=== PATIENT | female | born 1970 | race Caucasian/White ===

== ENCOUNTER 2016-06-21 08:50 | Emergency (ER) | payer OTHER ==
[2016-06-21] MEDS ORDERED: predniSONE TAB* 20 MG PO ONE (09:45)
[2016-06-21] MEDS ORDERED: Ketorolac INJ* 30 MG/ML 1 ML VIAL IM ONE (09:45)
--- NOTE | 2016-06-21 10:16 | RAD ---
HISTORY: Low back pain COMPARISONS: October 24, 2010 VIEWS: 3 , Frontal, lateral, and coned-down lateral sacral views of the lumbar spine FINDINGS: ALIGNMENT: The alignment is normal. VERTEBRAL BODIES: There is mild multilevel anterolateral marginal osteophyte formation. The vertebral bodies are preserved in height. JOINTS: There is facet hypertrophic change at L4-L5 and L5-S1 INTERVERTEBRAL DISCS: There is mild diffuse loss of intervertebral disc height. SOFT TISSUE: Unremarkable. OTHER: The pelvis is unremarkable. The lung bases are clear. IMPRESSION: MILD DEGENERATIVE DISC DISEASE AND OSTEOARTHRITIS, MOST PRONOUNCED AT L4-L5 AND L5-S1
[2016-06-21 10:33] VITALS: BP 124/70
--- NOTE | 2016-06-21 16:25 | ED ---
Back Pain - History of Current Complaint Chief Complaint: EDBackInjuryPain Stated Complaint: LOWER BACK PAIN Time Seen by Provider: 06/21/16 08:55 Pain Intensity: 3 Pain Scale Used: 0-10 Numeric - Allergies/Home Medications Allergies/Adverse Reactions: Allergies Allergy/AdvReac Type Severity Reaction Status Date / Time Tramadol [From Ultram] Allergy unknown Verified 03/27/15 16:41 reaction Celecoxib [From Celebrex] AdvReac diverticuli Verified 03/27/15 16:41 tis PMH/Surg Hx/FS Hx/Imm Hx Endocrine/Hematology History: Reports: Hx Diabetes - Surgical History Surgery Procedure, Year, and Place: tubal ligation, exploratory abd surgery, uterine ablasion, toe surgery. - Immunization History Date of Tetanus Vaccine: Unk Date of Influenza Vaccine: Fall 2014 Infectious Disease History: No Infectious Disease History: Denies: History Other Infectious Disease, Traveled Outside the [place] in Last 30 Days - Social History Alcohol Use: Rare Substance Use Type: Reports: None Smoking Status (MU): Heavy Every Day Tobacco Smoker Amount Used/How Often: 1 ppd Physical Exam Vital Signs On Initial Exam: Initial Vitals Temp Pulse Resp BP Pulse Ox 97.1 F 126 16 157/98 100 06/21/16 08:52 06/21/16 08:52 06/21/16 08:52 06/21/16 08:52 06/21/16 08:52 Diagnostics - Vital Signs Vital Signs Temp Pulse Resp BP Pulse Ox 06/21/16 10:37 97.0 F 98 20 124/70 06/21/16 10:30 98 124/70 95 06/21/16 10:16 101 123/91 95 06/21/16 10:13 94 96 06/21/16 09:08 123 97 06/21/16 09:06 127/101 06/21/16 09:05 96.7 F 115 18 127/101 99 06/21/16 08:52 97.1 F 126 16 157/98 100 - Laboratory Lab Statement: Any lab studies that have been ordered have been reviewed, and results considered in the medical decision making process. Back Pain Course/Dx - Diagnoses Provider Diagnoses: LOW BACK STRAIN Discharge - Discharge Plan Condition: Stable Disposition: HOME Prescriptions: Ketorolac TAB (NF) [Toradol TAB (NF)] 10 mg PO Q8H PRN #4 tab PRN Reason: back pain predniSONE TAB* [Deltasone TAB*] 10 mg PO DAILY #10 tab Patient Education Materials: Low Back Strain (ED), Core Strengthening Exercises (GEN) Referrals: Monik Hutchison MD [Primary Care Provider] - Additional Instructions: - Do not take celebrex with toradol - Prednisone to help with inflammation/ nerve pain - Limit activity next 3-4 days, increase rest, heating pad for comfort - Flexeril as needed for muscle spasms - FOllow up with primary physician within 2-3 days if no improvement - Return to ER with loss of bowel/ bladder function, increased numbness/ tingling
== END 2016-06-21 10:37 | disposition home or self-care (01) ==
LOC: ED 08:50
DX: S39.012A Strain of muscle, fascia and tendon of lower back, initial encounter (principal); F17.210 Nicotine dependence, cigarettes, uncomplicated; E11.9 Type 2 diabetes mellitus without complications; X58.XXXA Exposure to other specified factors, initial encounter; Y92.9 Unspecified place or not applicable
CPT/HCPCS: 72100; 99282; J1885; J7512

== ENCOUNTER 2017-04-05 11:12 | Emergency (ER) | payer OTHER ==
[2017-04-05 12:57] LABS: ABS Basophils 0.1 10^3/ul (0-0.2); ABS Eosinophils 0 10^3/ul (0-0.6); ABS Lymphocytes 2.4 10^3/ul (1.0-4.8); ABS Monocytes 0.6 10^3/ul (0-0.8); ABS Neutrophils 9.7 10^3/ul (1.5-7.7); ABS Nucleated RBC 0 10^3/ul; Eosinophil % 0.2 % (0-6); Hematocrit 40 % (35-47); Hemoglobin 13.6 g/dl (12.0-16.0); Lymphocyte % 18.8 % (25-47); Mean Corpuscular HGB Conc 34 g/dl (31-36); Mean Corpuscular Hemoglobin 30 pg (27-31); Mean Corpuscular Volume 89 fL (80-97); Mean Platelet Volume 8 um3 (7.4-10.4); Nucleated Red Blood Cells % 0.2; Platelet Count 302 10^3/ul (150-450); Red Blood Count 4.51 10^6/ul (4.0-5.4); Red Cell Distribution Width 13 % (10.5-15); White Blood Count 12.8 10^3/ul (3.5-10.8)
--- NOTE | 2017-04-05 13:08 | RAD ---
HISTORY: Chest pain COMPARISONS: April 02, 2006 VIEWS: 1: frontal portable view of the chest at 12:55 PM FINDINGS: LINES AND TUBES: None. CARDIOMEDIASTINAL SILHOUETTE: The cardiomediastinal silhouette is normal for portable technique. PLEURA: The costophrenic angles are sharp. No pleural abnormalities are noted. LUNG PARENCHYMA: The lungs are clear. ABDOMEN: The upper abdomen is clear. There is no subphrenic gas. BONES AND SOFT TISSUES: No bone or soft tissue abnormalities are noted. IMPRESSION: NO ACTIVE CARDIOPULMONARY DISEASE.
[2017-04-05 13:16] LABS: EGFR Non-African American 101.3 (>60)
[2017-04-05 13:50] LABS: INR 0.85 (0.77-1.02)
[2017-04-05] MEDS ORDERED: Iodixanol* (CONTRAST) 320 MG/ML 100 ML SDV IV ONE (14:03)
--- NOTE | 2017-04-05 14:28 | RAD ---
HISTORY: Shortness of breath COMPARISONS: None relevant TECHNIQUE: Multiple contiguous axial CT scans of the chest were obtained after the administration of nonionic intravenous contrast, timed to the pulmonary arterial phase of contrast enhancement.. Coronal and sagittal multiplanar reformations are also submitted for review. FINDINGS: NECK AND THYROID: The lower neck and thyroid are unremarkable. CHEST WALL: There is no lower cervical, axillary, or supraclavicular lymphadenopathy by size criteria. HEART AND PERICARDIUM: The heart is unremarkable. AORTA AND PULMONARY VASCULATURE: There is no pulmonary arterial filling defect to suggest pulmonary embolism. There is no linear filling defect within the aorta to suggest aortic dissection. MEDIASTINUM: There is no mediastinal lymphadenopathy by size criteria. EWA: There is no hilar lymphadenopathy by size criteria. AIRWAY AND ESOPHAGUS: The airway is unremarkable, without endobronchial filling defect. The esophagus is grossly normal. LUNG PARENCHYMA: There is patchy perihilar groundglass opacification PLEURA: No pleural abnormalities are noted. UPPER ABDOMEN: The upper abdomen is unremarkable. BONES AND SOFT TISSUES: Degenerative changes are noted along the spine. OTHER: None. IMPRESSION: 1. NO PULMONARY ARTERIAL FILLING DEFECT TO SUGGEST PULMONARY EMBOLISM. 2. PATCHY PERIHILAR AIRSPACE DISEASE
[2017-04-05] MEDS ORDERED: Levofloxacin TAB* 500 MG PO ONE (14:50)
[2017-04-05 15:05] VITALS: BP 171/83
--- NOTE | 2017-04-05 15:32 | ED ---
Jose Mathur Jennifer, scribed for Kingsley Velez on 04/05/17 at 1216 . HPI Chest Pain - HPI Summary HPI Summary: The patient is a 46 year old female who complains of chest pain that is diffuse throughout her rib cage that began yesterday morning. She describes it as a muscular pain that is aggravated by coughing, sneezing, laughing, deep breaths , and movements. She had surgery for her sinuses two days ago and was discharged on the same day. The patient additionally complains of shortness of breath. She denies leg pain, nausea, vomiting, and dizziness. She denies heart problems, lung problems, asthma, and drug use, but she does smoke. - History of Current Complaint Chief Complaint: EDChestWallPain Time Seen by Provider: 04/05/17 11:59 Hx Obtained From: Patient Onset/Duration: Started Days Ago - yesterday morning Timing: Constant Initial Severity: Moderate Current Severity: Moderate Pain Intensity: 9 Pain Scale Used: 0-10 Numeric Chest Pain Location: Diffuse Aggravating Factor(s): Movement, Deep Breaths, Other: - Coughing, sneezing, laughing, pressing on it Alleviating Factor(s): Nothing Associated Signs and Symptoms: Positive: Chest Pain, Other: - "muscle" pain - Allergy/Home Medications Allergies/Adverse Reactions: Allergies Allergy/AdvReac Type Severity Reaction Status Date / Time Tramadol [From Ultram] Allergy unknown Verified 03/27/15 16:41 reaction Celecoxib [From Celebrex] AdvReac diverticuli Verified 03/27/15 16:41 tis PMH/Surg Hx/FS Hx/Imm Hx Endocrine/Hematology History: Reports: Hx Diabetes Cardiovascular History: Reports: Other Cardiovascular Problems/Disorders - Hx Factor V EENT History: Denies: Hx Deafness - Surgical History Surgery Procedure, Year, and Place: tubal ligation, exploratory abd surgery, uterine ablasion, toe surgery. - Immunization History Date of Tetanus Vaccine: Unk Date of Influenza Vaccine: Fall 2014 Infectious Disease History: No Infectious Disease History: Denies: History Other Infectious Disease, Traveled Outside the [place] in Last 30 Days - Family History Known Family History: Positive: Diabetes, Other - Clotting disorder - Social History Alcohol Use: Rare Substance Use Type: Reports: None Smoking Status (MU): Heavy Every Day Tobacco Smoker Amount Used/How Often: 1 ppd Review of Systems Positive: Chest Pain Positive: Shortness Of Breath Negative: Vomiting, Nausea Negative: Other - leg pain Neurological: Negative - Dizziness All Other Systems Reviewed And Are Negative: Yes Physical Exam - Summary Physical Exam Summary: Appearance: Well appearing, no pain distress Skin: warm, dry, reflects adequate perfusion Head/face: normal Eyes: EOMI, SAMPSON ENT: normal Neck: supple, non-tender Respiratory: CTA, breath sounds present Cardiovascular: RRR, pulses symmetrical Abdomen: non-tender, soft Bowel: present Musculoskeletal: Tenderness over the chest. strength/ROM intact Neuro: normal, sensory motor intact, A&Ox3 Triage Information Reviewed: Yes Vital Signs On Initial Exam: Initial Vitals Temp Pulse Resp BP Pulse Ox 98.5 F 94 22 166/112 98 04/05/17 11:17 04/05/17 11:17 04/05/17 11:17 04/05/17 11:17 04/05/17 11:17 Vital Signs Reviewed: Yes Diagnostics - Vital Signs Vital Signs Temp Pulse Resp BP Pulse Ox 04/05/17 11:17 98.5 F 94 22 166/112 98 - Laboratory Lab Results: Lab Results 04/05/17 04/05/17 04/05/17 Range/Units 12:45 12:45 12:45 WBC 12.8 H (3.5-10.8) 10^3/ul RBC 4.51 (4.0-5.4) 10^6/ul Hgb 13.6 (12.0-16.0) g/dl Hct 40 (35-47) % MCV 89 (80-97) fL MCH 30 (27-31) pg MCHC 34 (31-36) g/dl RDW 13 (10.5-15) % Plt Count 302 (150-450) 10^3/ul MPV 8 (7.4-10.4) um3 Neut % (Auto) 76.0 (38-83) % Lymph % (Auto) 18.8 L (25-47) % Imperial % (Auto) 4.4 (1-9) % Eos % (Auto) 0.2 (0-6) % Baso % (Auto) 0.6 (0-2) % Absolute Neuts (auto) 9.7 H (1.5-7.7) 10^3/ul Absolute Lymphs (auto) 2.4 (1.0-4.8) 10^3/ul Absolute Monos (auto) 0.6 (0-0.8) 10^3/ul Absolute Eos (auto) 0 (0-0.6) 10^3/ul Absolute Basos (auto) 0.1 (0-0.2) 10^3/ul Absolute Nucleated RBC 0 10^3/ul Nucleated RBC % 0.2 INR (Anticoag Therapy) 0.85 (0.77-1.02) APTT 32.2 (26.0-36.3) seconds D-Dimer, Quantitative 219 (Less Than 230) ng/mL Sodium (133-145) mmol/L Potassium (3.5-5.0) mmol/L Chloride (101-111) mmol/L Carbon Dioxide (22-32) mmol/L Anion Gap (2-11) mmol/L BUN (6-24) mg/dL Creatinine (0.51-0.95) mg/dL Est GFR ( Amer) (>60) Est GFR (Non-Af Amer) (>60) BUN/Creatinine Ratio (8-20) Glucose (70-100) mg/dL Calcium (8.6-10.3) mg/dL Total Bilirubin (0.2-1.0) mg/dL AST (13-39) U/L ALT (7-52) U/L Alkaline Phosphatase (34-104) U/L Troponin I (<0.04) ng/mL B-Natriuretic Peptide 232 H ( - 100) pg/mL Total Protein (6.4-8.9) g/dL Albumin (3.2-5.2) g/dL Globulin (2-4) g/dL Albumin/Globulin Ratio (1-3) 04/05/17 Range/Units 12:45 WBC (3.5-10.8) 10^3/ul RBC (4.0-5.4) 10^6/ul Hgb (12.0-16.0) g/dl Hct (35-47) % MCV (80-97) fL MCH (27-31) pg MCHC (31-36) g/dl RDW (10.5-15) % Plt Count (150-450) 10^3/ul MPV (7.4-10.4) um3 Neut % (Auto) (38-83) % Lymph % (Auto) (25-47) % Imperial % (Auto) (1-9) % Eos % (Auto) (0-6) % Baso % (Auto) (0-2) % Absolute Neuts (auto) (1.5-7.7) 10^3/ul Absolute Lymphs (auto) (1.0-4.8) 10^3/ul Absolute Monos (auto) (0-0.8) 10^3/ul Absolute Eos (auto) (0-0.6) 10^3/ul Absolute Basos (auto) (0-0.2) 10^3/ul Absolute Nucleated RBC 10^3/ul Nucleated RBC % INR (Anticoag Therapy) (0.77-1.02) APTT (26.0-36.3) seconds D-Dimer, Quantitative (Less Than 230) ng/mL Sodium 138 (133-145) mmol/L Potassium 3.9 (3.5-5.0) mmol/L Chloride 108 (101-111) mmol/L Carbon Dioxide 23 (22-32) mmol/L Anion Gap 7 (2-11) mmol/L BUN 9 (6-24) mg/dL Creatinine 0.63 (0.51-0.95) mg/dL Est GFR ( Amer) 130.3 (>60) Est GFR (Non-Af Amer) 101.3 (>60) BUN/Creatinine Ratio 14.3 (8-20) Glucose 111 H (70-100) mg/dL Calcium 9.2 (8.6-10.3) mg/dL Total Bilirubin 0.40 (0.2-1.0) mg/dL AST 13 (13-39) U/L ALT 13 (7-52) U/L Alkaline Phosphatase 65 (34-104) U/L Troponin I 0.02 (<0.04) ng/mL B-Natriuretic Peptide ( - 100) pg/mL Total Protein 6.7 (6.4-8.9) g/dL Albumin 3.8 (3.2-5.2) g/dL Globulin 2.9 (2-4) g/dL Albumin/Globulin Ratio 1.3 (1-3) Result Diagrams: 04/05/17 12:45 04/05/17 12:45 Lab Statement: Any lab studies that have been ordered have been reviewed, and results considered in the medical decision making process. - Radiology CXR Xray Interpretation: No Acute Changes - NO ACTIVE CARDIOPULMONARY DISEASE. Dr. Velez has reviewed this report. Radiology Interpretation Completed By: Radiologist - CT CTA Chest/Thorax CT Interpretation: No Acute Changes - 1. NO PULMONARY ARTERIAL FILLING DEFECT TO SUGGEST PULMONARY EMBOLISM. 2. PATCHY PERIHILAR AIRSPACE DISEASE Dr. Velez has reviewed this report. CT Interpretation Completed By: Radiologist - EKG 12:40 Cardiac Rate: NL EKG Rhythm: Sinus Rhythm - 78 BPM EKG Interpretation: No acute changes Chest Pain Course/Dx - Course Assessment/Plan: The patient is a 46 year old female who presents with chest pain. In the ED, the patient was given Levaquin. Bloodwork, EKG, CXR, Chest/ Thorax CTA were obtained. Diagnosed with aspiration pneumonia and discharged home with primary care follow-up. - Chest Pain Differential Diagnosis/HQI/PQRI: Acute KS, ACS, Chest Wall, Lower Respiratory Infection - Diagnoses Provider Diagnoses: Aspiration pneumonia, Chest pain Discharge - Discharge Plan Condition: Stable Disposition: HOME Prescriptions: Levofloxacin TAB* [Levaquin TAB*] 500 mg PO DAILY #9 tab Patient Education Materials: Pneumonia (ED) Referrals: Monik Hutchison MD [Primary Care Provider] - 3 Days Additional Instructions: Follow up in three days with your primary care physician. Return to the Emergency Department for any new or worsening symptoms. The documentation as recorded by the Jose porter Jennifer accurately reflects the service I personally performed and the decisions made by Agustin vasquez Emmanuel.
== END 2017-04-05 15:10 | disposition home or self-care (01) ==
LOC: ED 11:12
DX: J69.0 Pneumonitis due to inhalation of food and vomit (principal); R07.9 Chest pain, unspecified; F17.200 Nicotine dependence, unspecified, uncomplicated; Z88.5 Allergy status to narcotic agent; Z88.8 Allergy status to other drugs, medicaments and biological substances
CPT/HCPCS: 36415; 71045; 71275; 80053; 83880; 84484; 85025; 85379; 85610; 85730; 93005; 99283; Q9967

== ENCOUNTER 2017-09-30 12:20 | Emergency (ER) | payer OTHER ==
--- NOTE | 2017-09-30 15:31 | RAD ---
INDICATION: Atraumatic neck pain COMPARISON: None TECHNIQUE: AP, lateral, and odontoid views were acquired FINDINGS: Bones: There are no acute bony findings. There are no significant osteoarthritic findings. Craniocervical junction: The odontoid and atlantodental interval are normal. Alignment: Normal Disc spaces: The disc spaces are well-maintained Soft tissues: The prevertebral soft tissues are normal. IMPRESSION: NEGATIVE THREE-VIEW EXAMINATION.
--- NOTE | 2017-09-30 15:32 | RAD ---
HISTORY: shoulder pain, limited ROM COMPARISONS: None VIEWS: 4, Frontal internal rotation, external rotation, outlet, and axillary views of the left shoulder FINDINGS: BONE DENSITY: Normal. BONES: There is no displaced fracture. JOINTS: There is mild osteoarthritis of the AC joint. ALIGNMENT: There is no dislocation. SOFT TISSUES: There is minimal soft tissue calcification along the greater tuberosity. OTHER FINDINGS: None. IMPRESSION: 1. MINIMAL SOFT TISSUE CALCIFICATION SUGGESTIVE OF A CALCIFIC TENDINOPATHY. NO ACUTE OSSEOUS INJURY. IF SYMPTOMS PERSIST, RECOMMEND REPEAT IMAGING. 2. NO ACUTE OSSEOUS INJURY. IF SYMPTOMS PERSIST, RECOMMEND REPEAT IMAGING
[2017-09-30] MEDS ORDERED: predniSONE TAB* 20 MG PO ONE (16:11)
--- NOTE | 2017-09-30 16:16 | ED ---
Upper Extremity Pain - HPI Summary HPI Summary: Patient presents with left-sided shoulder pain which she's had for 4 days. She reports she was packing for camping a day before her pain started on Saturday morning. She was able to go camping and just "pushed through it" as she had promised her grandchildren she would take them - had pain then but it was tolerable. She reports she went to see Dr. Ortega yesterday who adjusted her thoracic spine. Pain is worse today in the left shoulder. Radiates down into the muscles of her arm. Feels like her hand is swollen but it's not. Denies numbness or weakness. Pain is worse when she lets it hang and when she flexes - can abduct w/o pain. She takes Nucynta for chronic pain as well as meloxicam without relief for shoulder pain. No acute injury she recalls. H/o psoriatic arthritis. H/o humira but was stopped d/t recurrent sinus infections. No DMARDS or steroids at this time but has had steroids in the past. - History of Current Complaint Chief Complaint: EDExtremityUpper Stated Complaint: LT ARM INJURY Time Seen by Provider: 09/30/17 14:04 Hx Obtained From: Patient - Allergies/Home Medications Allergies/Adverse Reactions: Allergies Allergy/AdvReac Type Severity Reaction Status Date / Time MS Tramadol [From Ultram] Allergy unknown Verified 09/30/17 12:44 reaction MS Celecoxib [From Celebrex] AdvReac diverticuli Verified 09/30/17 12:44 tis PMH/Surg Hx/FS Hx/Imm Hx Previously Healthy: Yes Endocrine/Hematology History: Reports: Hx Diabetes, Autoimmune Disease - psoriatic arthritis Denies: Hx Anticoagulant Therapy, Hx Blood Disorders Cardiovascular History: Reports: Other Cardiovascular Problems/Disorders - Hx Factor V Musculoskeletal History: Reports: Hx Arthritis - psoriatic Sensory History: Denies: Hx Deafness - Surgical History Surgery Procedure, Year, and Place: tubal ligation, exploratory abd surgery, uterine ablasion, toe surgery. - Immunization History Date of Tetanus Vaccine: Unk Date of Influenza Vaccine: Fall 2014 Immunizations Up to Date: Yes Infectious Disease History: No Infectious Disease History: Denies: History Other Infectious Disease, Traveled Outside the [place] in Last 30 Days - Family History Known Family History: Positive: Diabetes, Other - Clotting disorder - Social History Lives: With Family Alcohol Use: Rare Hx Substance Use: No Substance Use Type: Reports: None Hx Tobacco Use: Yes Smoking Status (MU): Heavy Every Day Tobacco Smoker Amount Used/How Often: 1 ppd Review of Systems Constitutional: Negative Negative: Fever, Chills, Fatigue Negative: Chest Pain Negative: Shortness Of Breath Positive: no symptoms reported Positive: Arthralgia, Myalgia, Decreased ROM Skin: Negative Neurological: Negative Psychological: Normal All Other Systems Reviewed And Are Negative: Yes Physical Exam Triage Information Reviewed: Yes Vital Signs On Initial Exam: Initial Vitals Temp Pulse Resp BP Pulse Ox 98.6 F 90 20 128/74 99 09/30/17 12:40 09/30/17 12:40 09/30/17 12:40 09/30/17 12:40 09/30/17 12:40 Vital Signs Reviewed: Yes Appearance: Positive: Well-Appearing, Pain Distress - mild with arm in supported position - worse w/ movement, Obese Skin: Positive: Warm, Skin Color Reflects Adequate Perfusion, Dry - no erythema , no ecchymosis Head/Face: Positive: Normal Head/Face Inspection Eyes: Positive: EOMI ENT: Positive: Hearing grossly normal Neck: Positive: Nontender, Tenderness @ - paracervical mm TTP Respiratory/Lung Sounds: Positive: Breath Sounds Present Cardiovascular: Positive: Pulses are Symmetrical in both Upper and Lower Extremities - no UE edema Musculoskeletal: Positive: Strength/ROM Intact - Lt shoulder abduction, Limited @ - Lt shoulder flexion/internal/external rotation limited d/t pain, Pain @ - muscles surrounding shoulder TTP (trap, deltoid, teres, bicep) Neurological: Positive: Normal, Sensory/Motor Intact, Alert, Oriented to Person Place, Time, CN Intact II-III Psychiatric: Positive: Normal Diagnostics - Vital Signs Vital Signs Temp Pulse Resp BP Pulse Ox 09/30/17 12:40 98.6 F 90 20 128/74 99 - Laboratory Lab Statement: Any lab studies that have been ordered have been reviewed, and results considered in the medical decision making process. Course/Dx - Course Course Of Treatment: shoulder XR: calcific tendonitis - no fx, no dislocation. Cervical XR: no acute findings. Since pt already takes nucynta and meloxicam, will trial 5 day course of prednisone - pt has had this in the past for arthritis flair ups. Will f/u w/ Dr. Christianson (her social studies department chair) and Dr. Ortega (her painting machine operator). - Diagnoses Provider Diagnoses: Calcific tendonitis of left shoulder Discharge - Sign-Out/Discharge Documenting (check all that apply): Patient Departure - Discharge Plan Condition: Stable Disposition: HOME Prescriptions: predniSONE TAB* [Deltasone 20 MG TAB*] 40 mg PO DAILY #8 tab Patient Education Materials: Calcific Tendinitis (ED) Referrals: Alyssa MATAMOROS,Brittany Candelario [Medical Doctor] - Darrell Ortega DO [Doctor of Osteopathy] - Additional Instructions: Follow-up with Dr. Christianson and Dr. Ortega Use sling as needed but make sure to remove arm and gently stretch multiple times a day to prevent frozen shoulder *If you develop numbness, skin color change/coolness or severe swelling, return to the ED - Billing Disposition and Condition Condition: STABLE Disposition: Home
[2017-09-30 16:50] VITALS: BP 136/74
== END 2017-09-30 16:35 | disposition home or self-care (01) ==
LOC: ED 12:20
DX: M75.92 Shoulder lesion, unspecified, left shoulder (principal); E11.9 Type 2 diabetes mellitus without complications; L40.50 Arthropathic psoriasis, unspecified; D68.51 Activated protein C resistance
CPT/HCPCS: 72040; 99282; J7512

== ENCOUNTER 2017-12-11 10:29 | Emergency (ER) | payer OTHER ==
[2017-12-11] MEDS ORDERED: NS 0.9% 1000 ML* 1,000 ML IV ONE (10:48)
--- NOTE | 2017-12-11 11:15 | RAD ---
HISTORY: Palpitations COMPARISONS: April 05, 2017 VIEWS: 4: Frontal dual-energy and lateral views of the chest. FINDINGS: CARDIOMEDIASTINAL SILHOUETTE: The cardiomediastinal silhouette is normal. EWA: The ewa are normal. PLEURA: The costophrenic angles are sharp. No pleural abnormalities are noted. LUNG PARENCHYMA: The lungs are clear. ABDOMEN: The upper abdomen is clear. There is no subphrenic gas. BONES AND SOFT TISSUES: Degenerative changes are noted along the spine. OTHER: None. IMPRESSION: NO ACTIVE CARDIOPULMONARY DISEASE.
--- NOTE | 2017-12-11 11:23 | ED ---
Palpitations / Dysrhythmia - HPI Summary HPI Summary: Patient is a 47 y/o female who presents to the ED c/o palpitations for about 2 months. She initially thought the palpitations were just anxiety, since she has a history of panic attacks and has been under a lot of stress lately. Today she went to her pain management physician, Dr. Ortega, who sent her to the ER for the palpitations. Patient has also been on antibiotics for a right ear infection. She still c/o right ear pain that radiates to her jaw, and also c/o right tooth pain, headaches, burping, and high BP. Patient denies any SOB or CP. She states she became lightheaded today when taking deep breaths. - History of Current Complaint Chief Complaint: EDDysrhythmPalp Time Seen by Provider: 12/11/17 10:48 Hx Obtained From: Patient Onset/Duration: Gradual Onset, Lasting Weeks - ~2 months, Still Present Timing: Intermittent Episodes Lasting: Character: Fluttering Aggravating: Nothing Alleviating: Nothing Associated Signs & Symptoms: Lightheadedness - Allergy/Home Medications Allergies/Adverse Reactions: Allergies Allergy/AdvReac Type Severity Reaction Status Date / Time MS Tramadol [From Ultram] Allergy unknown Verified 12/11/17 11:07 reaction MS Celecoxib [From Celebrex] AdvReac diverticuli Verified 12/11/17 11:07 tis Home Medications: Home Medications Atorvastatin* [Lipitor*] 10 mg PO DAILY 12/11/17 [History Confirmed 12/11/17] Dulaglutide (NF) [Trulicity (NF)] 1.5 mg SUBCUT Q7D 12/11/17 [History Confirmed 12/11/17] Meloxicam(NF) [Mobic(NF)] 15 mg PO DAILY 12/11/17 [History Confirmed 12/11/17] Tapentadol ER (NF) [Nucynta ER (NF)] 100 mg PO BID MDD 200 mg 12/11/17 [History Confirmed 12/11/17] metFORMIN* [Glucophage 500 MG TAB *] 500 mg PO DAILY 12/11/17 [History Confirmed 12/11/17] PMH/Surg Hx/FS Hx/Imm Hx Endocrine/Hematology History: Reports: Hx Diabetes Denies: Hx Anticoagulant Therapy, Hx Blood Disorders Cardiovascular History: Reports: Other Cardiovascular Problems/Disorders - Hx Factor V Musculoskeletal History: Reports: Hx Arthritis - psoriatic Sensory History: Denies: Hx Deafness Psychiatric History: Reports: Hx Anxiety - Panic attacks - Surgical History Surgery Procedure, Year, and Place: tubal ligation, exploratory abd surgery, uterine ablasion, toe surgery. - Immunization History Date of Tetanus Vaccine: Unk Date of Influenza Vaccine: Fall 2014 Infectious Disease History: No Infectious Disease History: Denies: History Other Infectious Disease, Traveled Outside the [place] in Last 30 Days - Family History Known Family History: Positive: Diabetes, Blood Disorder - Clotting disorder - Social History Alcohol Use: Rare Hx Substance Use: No Substance Use Type: Reports: None Hx Tobacco Use: Yes Smoking Status (MU): Heavy Every Day Tobacco Smoker Amount Used/How Often: 1 ppd Review of Systems Positive: Dental Pain - Right-sided, Ear Ache - Right Positive: Palpitations. Negative: Chest Pain Negative: Shortness Of Breath Positive: Other - Burping Neurological: Other - Lightheadedness Positive: Headache Positive: Anxious All Other Systems Reviewed And Are Negative: Yes Physical Exam - Summary Physical Exam Summary: VITAL SIGNS: Reviewed. GENERAL: Patient is a well-developed and obese FEMALE who is lying comfortable in the stretcher. Patient is not in any acute respiratory distress. HEAD AND FACE: No signs of trauma. No ecchymosis, hematomas or skull depressions. No sinus tenderness. EYES: PERRLA, EOMI x 2, No injected conjunctiva, no nystagmus. EARS: Hearing grossly intact. Ear canals and tympanic membranes are within normal limits. MOUTH: Oropharynx within normal limits. NECK: Supple, trachea is midline, no adenopathy, no JVD, no carotid bruit, no c- spine tenderness, neck with full ROM. CHEST: Symmetric, no tenderness at palpation LUNGS: Clear to auscultation bilaterally. No wheezing or crackles. CVS: Regular rate and rhythm, S1 and S2 present, no murmurs or gallops appreciated. ABDOMEN: Soft, non-tender. No signs of distention. No rebound no guarding, and no masses palpated. Bowel sounds are normal. EXTREMITIES: FROM in all major joints, no edema, no cyanosis or clubbing. NEURO: Alert and oriented x 3. No acute neurological deficits. Speech is normal and follows commands. SKIN: Dry and warm Triage Information Reviewed: Yes Vital Signs On Initial Exam: Initial Vitals Temp Pulse Resp BP Pulse Ox 98.3 F 91 16 153/101 98 12/11/17 10:36 12/11/17 10:36 12/11/17 10:36 12/11/17 10:36 12/11/17 10:36 Vital Signs Reviewed: Yes Diagnostics - Vital Signs Vital Signs Temp Pulse Resp BP Pulse Ox 12/11/17 10:36 98.3 F 91 16 153/101 98 - Laboratory Result Diagrams: 12/11/17 11:24 12/11/17 11:25 Lab Statement: Any lab studies that have been ordered have been reviewed, and results considered in the medical decision making process. - Radiology CXR Xray Interpretation: No Acute Changes - NO ACTIVE CARDIOPULMONARY DISEASE. ED physician reviewed radiology report. Radiology Interpretation Completed By: Radiologist - EKG 10:52 Cardiac Rate: NL - 82 bpm EKG Rhythm: Sinus Rhythm EKG Interpretation: No ST elevations Course/Dx - Course Assessment/Plan: Patient is a 47 y/o female who presents to the ED c/o palpitations for about 2 months. She initially thought the palpitations were just anxiety, since she has a history of panic attacks and has been under a lot of stress lately. Today she went to her pain management physician, Dr. Ortega, who sent her to the ER for the palpitations. Patient has also been on antibiotics for a right ear infection. She still c/o right ear pain that radiates to her jaw, and also c/o right tooth pain, headaches, burping, and high BP. Patient denies any SOB or CP. She states she became lightheaded today when taking deep breaths. Physical exam shows slight pain around the right side of the face possibly secondary to a dental cavity. The exam of the ears are within normal limits. Blood work without any significant abnormality except for WBCs of 13.3, troponin 0.00, and urinalysis negative for UTI. Also the TSH is normal. I believe that the patient would benefit from a Holter monitor. Therefore the patient will be discharged home with follow-up with the primary care physician for a possible Holter monitor. At this point since the patient is asymptomatic, the blood test results are normal patient will be discharged home. I discussed all the findings and test results with the patient. Patient was instructed to return to the emergency room immediately if any of the symptoms return or worsens. Plan of care was discussed with the patient and understands and agrees. All questions were answered at patient satisfaction. There were no further complaints or concerns. Lung exam before discharge: CTA B/L. Good air exchange. No wheezing or crackles heard. CVS: S1 and S2 present. No murmurs appreciated. Patient is alert and oriented x 3. Patient is hemodynamically stable. Patient will be discharged home with follow up PCP in the next 2-3 days - Diagnoses Provider Diagnoses: Palpitations, Pain, dental Discharge - Sign-Out/Discharge Documenting (check all that apply): Patient Departure - Discharge - Discharge Plan Condition: Stable Disposition: HOME Patient Education Materials: Heart Palpitations (ED), Toothache (ED) Referrals: Monik Hutchison MD [Primary Care Provider] - 3 Days Additional Instructions: FOLLOW UP WITH YOUR PRIMARY CARE PROVIDER WITHIN ONE WEEK FOR HIGH BLOOD PRESSURE NOTED TODAY. RETURN TO THE ED FOR ANY WORSENING OR NEW SYMPTOMS. - Billing Disposition and Condition Condition: STABLE Disposition: Home - Attestation Statements Document Initiated by Scribe: Yes Documenting Scribe: Kristine Martines Provider For Whom Ever is Documenting (Include Credential): Gianni Colon MD Scribe Attestation: Kristine Mathur, scribed for Gianni Colon MD on 12/12/17 at 0942. Scribe Documentation Reviewed: Yes Provider Attestation: The documentation as recorded by the Kristine porter accurately reflects the service I personally performed and the decisions made by me, Gianni Colon MD
[2017-12-11 11:44] LABS: ABS Basophils 0.2 10^3/ul (0-0.2); ABS Eosinophils 0.1 10^3/ul (0-0.6); ABS Lymphocytes 3.1 10^3/ul (1.0-4.8); ABS Monocytes 0.7 10^3/ul (0-0.8); ABS Neutrophils 9.3 10^3/ul (1.5-7.7); ABS Nucleated RBC 0 10^3/ul; Eosinophil % 0.7 % (0-6); Hematocrit 45 % (35-47); Hemoglobin 15.3 g/dl (12.0-16.0); Lymphocyte % 23.6 % (25-47); Mean Corpuscular HGB Conc 34 g/dl (31-36); Mean Corpuscular Hemoglobin 30 pg (27-31); Mean Corpuscular Volume 89 fL (80-97); Mean Platelet Volume 8.4 um3 (7.4-10.4); Nucleated Red Blood Cells % 0; Platelet Count 255 10^3/ul (150-450); Red Blood Count 5.08 10^6/ul (4.00-5.40); Red Cell Distribution Width 14 % (10.5-15); White Blood Count 13.3 10^3/ul (3.5-10.8)
[2017-12-11 12:00] LABS: EGFR Non-African American 102.7 (>60)
[2017-12-11 12:50] LABS: Urine Appearance Cloudy; Urine Blood Negative (Negative); Urine Color Yellow; Urine Ketones Negative (Negative); Urine Protein Negative (Negative); Urine Specific Gravity 1.013 (1.010-1.030); Urine Urobilinogen Negative (Negative)
[2017-12-11 13:35] VITALS: BP 157/99
== END 2017-12-11 13:34 | disposition home or self-care (01) ==
LOC: ED 10:29
DX: R00.2 Palpitations (principal); K08.89 Other specified disorders of teeth and supporting structures; R42 Dizziness and giddiness; F17.210 Nicotine dependence, cigarettes, uncomplicated
CPT/HCPCS: 36415; 71046; 80053; 81003; 82550; 82553; 83605; 83735; 84443; 84484; 85025; 93005; 96360; 99283

== ENCOUNTER → 2017-12-11 16:32 | Emergency (ER) | payer OTHER ==
[2017-12-11 16:36] VITALS: BP 173/105
== END | disposition left against medical advice (07) ==
LOC: ED 16:32
DX: R00.2 Palpitations (principal); Z53.21 Procedure and treatment not carried out due to patient leaving prior to being seen by health care provider
CPT/HCPCS: 93005

== ENCOUNTER 2018-10-01 18:04 | Emergency (ER) | payer OTHER ==
[2018-10-01 18:24] VITALS: BP 109/78
--- NOTE | 2018-10-01 19:30 | UC ---
Upper Extremity HPI - HPI Summary HPI Summary: 48-year-old female presents with complaints of right index finger pain after accidentally shutting her finger in a car door just prior to arrival. Complains of throbbing pain to the distal aspect of the finger. Notes bruising of the tip of the finger as well as small laceration of the cuticle and some blood under the fingernail. Denies numbness or tingling. - History of Current Complaint Chief Complaint: UCUpperExtremity Stated Complaint: FINGER INJURY Time Seen by Provider: 10/01/18 18:22 Hx Obtained From: Patient Pain Intensity: 9 - Allergies/Home Medications Allergies/Adverse Reactions: Allergies Allergy/AdvReac Type Severity Reaction Status Date / Time tramadol Allergy Severe GI ISSUES Verified 10/01/18 18:26 celecoxib [From Celebrex] Allergy DIVERTICULI Verified 10/01/18 18:26 TIS Home Medications: Home Medications Acetaminophen [Pain Relief Extra Strength] 1,500 mg PO ONCE PRN 10/01/18 [ History Confirmed 10/01/18] Adalimumab [Humira] 10/01/18 [History Confirmed 10/01/18] Lisinopril TAB* [Prinivil TAB*] 20 mg PO DAILY 10/01/18 [History Confirmed 10/01] PMH/Surg Hx/FS Hx/Imm Hx Endocrine History: Diabetes, Dyslipidemia Cardiovascular History: Hypertension Other History Of: Negative For: Anticoagulant Therapy - Surgical History Surgical History: Yes Surgery Procedure, Year, and Place: tubal ligation, exploratory abd surgery, uterine ablasion, toe surgery X4 - Family History Known Family History: Positive: Diabetes, Blood Disorder - Clotting disorder, Other - Clotting disorder - Social History Occupation: Disabled Lives: With Family Alcohol Use: Rare Substance Use Type: None Smoking Status (MU): Current Every Day Smoker Amount Used/How Often: 1 ppd Household Exposure Type: Cigarettes - Immunization History Most Recent Tetanus Shot: >5 YEARS Review of Systems All Other Systems Reviewed And Are Negative: Yes Skin: Positive: Bruising Respiratory: Positive: Negative Cardiovascular: Positive: Negative Gastrointestinal: Positive: Negative Genitourinary: Positive: Negative Musculoskeletal: Positive: Other: - See HPI Neurological: Positive: Negative Is Patient Immunocompromised?: No Physical Exam - Summary Physical Exam Summary: GENERAL APPEARANCE: Well developed, well nourished, alert and cooperative, and appears to be in no acute distress. CARDIAC: Normal S1 and S2. No S3, S4 or murmurs. Rhythm is regular. There is no peripheral edema, cyanosis or pallor. Extremities are warm and well perfused. Capillary refill is less than 2 seconds. Peripheral pulses intact. LUNGS: Clear to auscultation without rales, rhonchi, wheezing or diminished breath sounds. ABDOMEN: Positive bowel sounds. Soft, nondistended, nontender. No guarding or rebound. No masses or hepatosplenomegally. MUSKULOSKELETAL: Normal muscular development. Normal gait. EXTREMITIES: Ecchymosis and mild edema of the distal right index finger. There is a small subungual hematoma to the proximal nailbed. Superficial laceration of the cuticle with bleeding controlled. Flexion of the finger slightly limited by the edema. Circulation and sensation intact. SKIN: Skin normal color, texture and turgor. Triage Information Reviewed: Yes Vital Signs: Initial Vital Signs Temp 97.7 F 10/01/18 18:18 Pulse 92 10/01/18 18:18 Resp 18 10/01/18 18:18 BP 109/78 10/01/18 18:18 Pulse Ox 100 10/01/18 18:18 Vital Signs Reviewed: Yes Diagnostics - Radiology No standard instances Radiology Interpretation Completed By: ED Physician Summary of Radiographic Findings: No acute fracture. Upper Extremity Course/Dx - Course Course Of Treatment: 48-year-old female presents with complaints of right index finger pain after accidentally shutting her finger in a car door just prior to arrival. Complains of throbbing pain to the distal aspect of the finger. Notes bruising of the tip of the finger as well as small laceration of the cuticle and some blood under the fingernail. Denies numbness or tingling. Afebrile. Vital signs stable. Patient had ecchymosis and mild edema of the distal right index finger. There is a small subungual hematoma to the proximal nailbed. Superficial laceration of the cuticle with bleeding controlled. Flexion of the finger slightly limited by the edema. Circulation and sensation intact. My preliminary reading of x-ray was no acute fracture. A trephination of the fingernail was performed to release the hematoma. Small blood was obtained. Patient was placed in a finger splint by the RN. Circulation and sensation were intact pre-and post-application. Recommending [id number] analgesics and RICE. She is to follow-up with her primary care provider in 5 days if symptoms do not improve. Anticipatory guidance and warning symptoms were reviewed with the patient. Verbalizes understanding and agrees with plan of care. - Differential Dx/Diagnosis Differential Diagnosis/HQI/PQRI: Contusion, Fracture (Closed), Hematoma, Laceration Provider Diagnosis: Subungual hematoma of right index finger, Contusion of finger of right hand Discharge - Sign-Out/Discharge Documenting (check all that apply): Patient Departure All imaging exams completed and their final reports reviewed: No - Discharge Plan Condition: Stable Disposition: HOME Patient Education Materials: Subungual Hematoma (ED), Contusion in Adults (ED) Referrals: Monik Hutchison MD [Primary Care Provider] - 5 Days Additional Instructions: The x-ray performed in the clinic today showed no evidence of a fracture. Rest the finger as much as possible. Wear the splint for protection and support until pain free. You may remove to shower but should wear at all other times. Apply ice to the affected area for 15-20 minutes at least 4 times a day to help with the pain and swelling. Elevate the hand to help reduce swelling. Take acetaminophen (Tylenol) or ibuprofen (Advil, Motrin) according to directions as needed for pain. Follow up with your primary care provider in 5 days if symptoms do not improve. Seek immediate medical attention if you have severe pain not managed with pain medication, develop numbness or tingling in the finger, or have any worsening of symptoms. - Billing Disposition and Condition Condition: STABLE Disposition: Home
--- NOTE | 2018-10-02 09:38 | UC ---
- Progress Note Progress Note: xray report right index finger : FINDINGS: The bones are normal alignment. No fracture is seen. Joint spaces appear maintained. Course/Dx - Diagnoses Provider Diagnoses: Subungual hematoma of right index finger, Contusion of finger of right hand Discharge - Sign-Out/Discharge Documenting (check all that apply): Patient Departure All imaging exams completed and their final reports reviewed: Yes - Discharge Plan Condition: Stable Disposition: HOME Patient Education Materials: Subungual Hematoma (ED), Contusion in Adults (ED) Referrals: Monik Hutchison MD [Primary Care Provider] - 5 Days Additional Instructions: The x-ray performed in the clinic today showed no evidence of a fracture. Rest the finger as much as possible. Wear the splint for protection and support until pain free. You may remove to shower but should wear at all other times. Apply ice to the affected area for 15-20 minutes at least 4 times a day to help with the pain and swelling. Elevate the hand to help reduce swelling. Take acetaminophen (Tylenol) or ibuprofen (Advil, Motrin) according to directions as needed for pain. Follow up with your primary care provider in 5 days if symptoms do not improve. Seek immediate medical attention if you have severe pain not managed with pain medication, develop numbness or tingling in the finger, or have any worsening of symptoms. - Billing Disposition and Condition Condition: STABLE Disposition: Home
== END 2018-10-01 20:00 | disposition home or self-care (01) ==
LOC: UCEAST 18:04
DX: S60.121A Contusion of right index finger with damage to nail, initial encounter (principal); V48.4XXA Person boarding or alighting a car injured in noncollision transport accident, initial encounter; Y92.9 Unspecified place or not applicable; E11.9 Type 2 diabetes mellitus without complications; E78.5 Hyperlipidemia, unspecified; I10 Essential (primary) hypertension; F17.210 Nicotine dependence, cigarettes, uncomplicated
CPT/HCPCS: 11740; 73140; 99212; G0463

== ENCOUNTER 2019-04-21 10:09 | Emergency (ER) | payer OTHER ==
--- OUTSIDE RECORDS SUMMARY | 2019-04-21 10:18 | XMS REPORT | Continuity of Care Document ---
:1970 External Reference #:[id number] Author Name Darrell Ortega DO, MPH Address [address] [place] [address], [address] [place] [address] Care Team Providers Name Role Phone Rom Vásquez P.A. - Physician Care Team Information Pt Escort [phone] Web Analytics Developer Monik Hutchison M.D. - Internal Care Team Information Pt Escort [phone] Medicine Problems Description No Information Available Social History Type Date Description Comments Sex Unknown Cigarette Use Current Cigarette Smoker 5-10 Cigarettes Daily ETOH Use Rarely consumes alcohol Tobacco Use Start: Unknown Patient is a current smoker, smokes every day Smoking Status Reviewed: 02/16/19 Patient is a current smoker, smokes every day Allergies, Adverse Reactions, Alerts Active Allergies Reaction Severity Comments Date Ultram 06/26/2010 Celebrex 06/26/2010 Oxycodone ITCHING 06/26/2010 Medications Active Medications SIG Qnty Indications Ordering Date Provider Nucynta ER 1 by mouth every 12 60tabs Darrell Ortega, 04/18/2018 50mg hours as directed MAGALI VAZQUEZ Tablets ER 12HR Mobic si po qd ud 30tabs Unknown 15mg Tablets Allergy & Sinus Unknown Intense Strength 25-10-650mg Tablets Metformin HCL ER 1 once a day at Unknown night 500mg Tablets ER 24HR Symbicort twice a day. Unknown 80-4.5mcg/Act Aerosol Lipitor one by mouth every 30tabs Unknown 10mg at bedtime Tablets Melatonin 3-4 at night Unknown 1mg Tablets Trulicity administered once a Unknown week 1.5mg/0.5ML Solution Pen-Inject Lisinopril si by mouth every Unknown 20mg day as directed Tablets Zanaflex si/2-1 by mouth Unknown 4mg twice a day as Tablets directed chronic pain patient Humira Pen Unknown 40mg/0.4ML PNKT History Medications Neurontin si by mouth 90caps Darrell Ortega DO, 01/07/2019 - 100mg three times a day MPH 02/16/2019 Capsules as directed chronic pain patient Immunizations Description No Information Available Vital Signs Date Vital Result Comment 03/17/2019 9:16am BP Systolic 144 mmHg BP Diastolic 80 mmHg Heart Rate 84 /min Respiratory Rate 20 /min Height 60 inches 5'0" Weight 231.00 lb Pain Level 6 Pain at this time. Pain Level With Medicine 5 on average with meds Pain Level Without Medicine 9 without meds BMI (Body Mass Index) 45.1 kg/m2 02/16/2019 9:45am BP Systolic 126 mmHg BP Diastolic 78 mmHg Heart Rate 74 /min Respiratory Rate 20 /min Height 60 inches 5'0" Weight 230.00 lb Pain Level 5 Pain at this time. Pain Level With Medicine 4 on average with meds Pain Level Without Medicine 9 without meds BMI (Body Mass Index) 44.9 kg/m2 Results Description No Information Available Procedures Date Code Description Status 11/29/2018 99648 Omt 3-4 Body Regions Completed 11/29/2018 46347 Injection For Nerve Block, Other Peripheral Nerve Or Completed Branch 11/29/2018 94968 Injection For Nerve Block, Other Peripheral Nerve Or Completed Branch 11/29/2018 61089 Injection, Single Or Mutiple Trigger Points One Or Two Completed Muscles 11/29/2018 03294 Injection, Tendon Origin/Insertion Completed 11/29/2018 78177 Injection, Tendon Origin/Insertion Completed 11/29/2018 29539 Inject Tendon/Ligament Completed 11/29/2018 62448 Inject Tendon/Ligament Completed Medical Devices Description No Information Available Encounters Type Date Location Provider Dx Diagnosis Office Visit 02/16/2019 Main Office as Of Darrell Ortega DO, G89.29 Other chronic pain 10:15a 04/11/13 MPH M54.16 Radiculopathy, lumbar region M54.5 Low back pain Z79.891 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 Office Visit 01/07/2019 9:30a Main Office as Darrell Ortega G89.29 Other chronic Of 04/11/13 DO, MPH pain M54.16 Radiculopathy, lumbar region M54.5 Low back pain M79.18 Myalgia, other site M53.3 Sacrococcygeal disorders, not elsewhere classified Z79.891 custodial (current) use of opiate analgesic Office Visit 12/05/2018 10:00a Main Office as Darrell Ortega G89.29 Other chronic Of 04/11/13 DO, MPH pain M54.5 Low back pain M54.16 Radiculopathy, lumbar region M46.07 Spinal enthesopathy, lumbosacral region Z79.891 custodial (current) use of opiate analgesic Office Visit 11/29/2018 9:30a Main Office as Darrell Ortega G89.29 Other chronic Of 04/11/13 DO, MPH pain M54.5 Low back pain M54.16 Radiculopathy, lumbar region M99.03 Segmental and somatic dysfunction of lumbar region M79.18 Myalgia, other site M46.07 Spinal enthesopathy, lumbosacral region M65.88 Other synovitis and tenosynovitis, other site M53.3 Sacrococcygeal disorders, not elsewhere classified M99.04 Segmental and somatic dysfunction of sacral region M25.551 Pain in right hip M25.552 Pain in left hip M99.05 Segmental and somatic dysfunction of pelvic region Office Visit 10/28/2018 10:45a Main Office as Darrell Ortega G89.29 Other chronic Of 04/11/13 DO, MPH pain M54.5 Low back pain M54.16 Radiculopathy, lumbar region M25.561 Pain in right knee M25.562 Pain in left knee Z79.891 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 Office Visit 09/23/2018 11:30a Main Office as Darrell Ortega G89.29 Other chronic Of 04/11/13 DO, MPH pain M54.2 Cervicalgia M54.5 Low back pain M25.561 Pain in right knee M25.562 Pain in left knee Z79.891 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 Assessments Date Code Description Provider 03/17/2019 G89.29 Other chronic pain Ortega, Darrell, DO, MPH 03/17/2019 M54.16 Radiculopathy, lumbar region Ortega, Darrell, DO, MPH 03/17/2019 M54.5 Low back pain Ortega, Darrell, DO, MPH 03/17/2019 M54.2 Cervicalgia Ortega, Darrell, DO, MPH 03/17/2019 M99.01 Segmental and somatic dysfunction of Ortega, Darrell, DO, MPH cervical region 03/17/2019 Z79.891 custodial (current) use of opiate analgesic Ortega, Darrell , DO, MPH 02/16/2019 G89.29 Other chronic pain Ortega, Darrell, DO, MPH 02/16/2019 M54.16 Radiculopathy, lumbar region Ortega, Darrell, DO, MPH 02/16/2019 M54.5 Low back pain Ortega, Darrell, DO, MPH 02/16/2019 Z79.891 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 Ortega, Darrell , DO, MPH 01/07/2019 G89.29 Other chronic pain Ortega, Darrell, DO, MPH 01/07/2019 M54.16 Radiculopathy, lumbar region Ortega, Darrell, DO, MPH 01/07/2019 M54.5 Low back pain Ortega, Darrell, DO, MPH 01/07/2019 M79.18 Myalgia, other site Ortega, Darrell, DO, MPH 01/07/2019 M53.3 Sacrococcygeal disorders, not elsewhere Ortega, Darrell, DO, MPH classified 01/07/2019 Z79.891 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 Ortega, Darrell , DO, MPH 12/05/2018 G89.29 Other chronic pain Ortega, Darrell, DO, MPH 12/05/2018 M54.5 Low back pain Ortega, Darrell, DO, MPH 12/05/2018 M54.16 Radiculopathy, lumbar region Ortega, Darrell, DO, MPH 12/05/2018 M46.07 Spinal enthesopathy, lumbosacral region Ortega, Darrell, DO, MPH 12/05/2018 Z79.891 custodial (current) use of opiate analgesic Ortega, Darrell , DO, MPH 11/29/2018 G89.29 Other chronic pain Ortega, Darrell, DO, MPH 11/29/2018 M54.5 Low back pain Ortega, Darrell, DO, MPH 11/29/2018 M54.16 Radiculopathy, lumbar region Ortega, Darrell, DO, MPH 11/29/2018 M99.03 Segmental and somatic dysfunction of lumbar Ortega, Darrell, DO, MPH region 11/29/2018 M79.18 Myalgia, other site Ortega, Darrell, DO, MPH 11/29/2018 M46.07 Spinal enthesopathy, lumbosacral region Ortega, Darrell, DO, MPH 11/29/2018 M65.88 Other synovitis and tenosynovitis, other Ortega, Darrell, DO , MPH site 11/29/2018 M53.3 Sacrococcygeal disorders, not elsewhere Ortega, Darrell, DO, MPH classified 11/29/2018 M99.04 Segmental and somatic dysfunction of sacral Ortega, Darrell, DO, MPH region 11/29/2018 M25.551 Pain in right hip Ortega, Darrell, DO, MPH 11/29/2018 M25.552 Pain in left hip Ortega, Darrell, DO, MPH 11/29/2018 M99.05 Segmental and somatic dysfunction of pelvic Ortega, Darrell, DO, MPH region 10/28/2018 G89.29 Other chronic pain Ortega, Darrell, DO, MPH 10/28/2018 M54.5 Low back pain Ortega, Darrell, DO, MPH 10/28/2018 M54.16 Radiculopathy, lumbar region Ortega, Darrell, DO, MPH 10/28/2018 M25.561 Pain in right knee Ortega, Darrell, DO, MPH 10/28/2018 M25.562 Pain in left knee Ortega, Darrell, DO, MPH 10/28/2018 Z79.891 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 Ortega, Darrell , DO, MPH 09/23/2018 G89.29 Other chronic pain Darrell Ortega DO MPH 09/23/2018 M54.2 Cervicalgia Darrell Ortega DO MPH 09/23/2018 M54.5 Low back pain Darrell Ortega DO MPH 09/23/2018 M25.561 Pain in right knee Darrell Ortega DO MPH 09/23/2018 M25.562 Pain in left knee Darrell Ortega DO MPH 09/23/2018 Z79.891 custodial (current) use of opiate analgesic Darrell Ortega DO MPH Plan of Treatment Future Appointment(s):04/16/2019 9:30 am - Darrell Ortega DO MPH at Main Office as Of 04/11/1400 - Darrell Ortega DO, MPHG89.29 Other chronic painComments:Chronic. Symptoms and complaints discussed and reviewed today. No significant changes in physical findings. Continue current medical pain management.M54.16 Radiculopathy, lumbar regionComments:Chronic. Symptoms and complaints discussed and reviewed today. No changes in physical findings; patient is stable on current medical therapy.M54.5 Low back painComments: Chronic. Symptoms and complaints discussed and reviewed today.No changes in physical findings. Patient is stable and comfortable when current medical therapy is rendered.M54.2 CervicalgiaComments:Chronic. Symptoms and complaints discussed and reviewed today. No significant changes in physical findings. Continue current medical pain management.M99.01 Segmental and somatic dysfunction of cervical regionComments:Chronic. Symptoms and complaints discussed and reviewed today. Somatic dysfunctions noted warrantingOMT. Continue current medical pain management and OMT. [id number]. OMT performed.Z79.891 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New Labs:Urine Drug Screen, Ordered: 03/17/19Comments:Urine drug screen sample taken today to monitor opiate use and to monitor use of illicit substances.Will discuss results at next appointment.The following tests were ordered:6 AM, AMPH, ROSALINDA, DEBBIE, BUP, CARIS, COCM, ETG, FENT, MCSHSG, OPI, OXY, PCP, TAPEN, XTSY, ZOLP. A urine drug test (UDT) was ordered for this patient and collected on site today. Creatinine has been ordered as well for specimen validity, not for kidney function. Preliminary UDT results are not final and should not be used to determine patient care or plan of treatment. Initially a qualitative immunoassay screen will bedone. Any inconsistent or positive findings will be further tested with a more comprehensive quantitative confirmation LCMS study. It is part of the treatment process of prescribing controlled substances and is considered standard of care.AllComments:Continue current medical pain management ; injection therapy, osteopathic manipulation, PT / modalities, and consults as needed to manage chronic pain.Non - opioid pain management discussed and optionsdiscussed.Side effects discussed; anticipatory guidance given. Patient clearly understand and agree with all medical treatments and suggestions. All medicines prescribed are adequate and appropriate for this patient's complaint of pain, medical history, physical, and personal goals.Goals of Treatment are to provide adequate and appropriate multidisciplinary medical pain management to increase/ maintain patient's quality of life and functionality while maintaining satisfactory side effect profile andminimizing ferry terminal supervisor end-organ damage. Importance of regular nutrition throughout the day discussed.Activity as toleratedContinue with PCP Functional Status Description No Information Available Mental Status Description No Information Available Referrals Refer to Reason for Referral Status Appt Date Carmenza Beatty MD Multilevel spondylosis; mild spinal Scheduled 11/2018 canal stenosis at L3-L4 [address] [place] [id number] [phone]
--- OUTSIDE RECORDS SUMMARY | 2019-04-21 10:18 | XMS REPORT | Continuity of Care Document ---
:1970 External Reference #:[id number] Author Name Franco Rowland MD (transmitted by agent of provider Zuleyka Gustafson ) Address [address] [place] [address] [place] [address] Care Team Providers Name Role Phone Monik Hutchison MD - Internal Medicine Care Team Information Costumer Problems Description No Information Available Social History Type Date Description Comments Sex Unknown ETOH Use Occasionally consumes alcohol Tobacco Use Start: Unknown Patient is a current smoker, smokes every day Recreational Drug Use Denies Drug Use Tobacco Use Start: Unknown reports less than 1 PPK day Smoking Status Reviewed: 03/16/19 reports less than 1 PPK day Exercise Type/Frequency Exercises sporadically walks Allergies, Adverse Reactions, Alerts Active Allergies Reaction Severity Comments Date Ultram 12/17/2018 Celebrex 12/17/2018 Medications Active Medications SIG Qnty Indications Ordering Provider Date Nucynta ER 1 tablet every 12 Unknown 50mg Tablets hours ER 12HR Meloxicam Take One Tablet Unknown 15mg Tablets By Mouth Every Day With Food as Needed For Pain Lisinopril Take One Tablet Unknown 20mg Tablets By Mouth Daily Tizanidine HCL Take One Capsule Unknown 4mg By Mouth AT Capsules Bedtime as Needed For Muscle Spasm Atorvastatin Calcium Take One Tablet Unknown 10mg By Mouth Daily Tablets Metformin HCL ER Take One Tablet Unknown 500mg By Mouth Every 24 Tablets ER 24HR Hours Immunizations Description No Information Available Vital Signs Date Vital Result Comment 03/16/2019 1:03pm Height 60 inches 5'0" Weight 229.00 lb Heart Rate 92 /min BP Systolic 148 mmHg BP Diastolic 90 mmHg Pain Level 7 Lower Back BMI (Body Mass Index) 44.7 kg/m2 12/17/2018 11:38am Height 60 inches 5'0" Weight 228.00 lb Heart Rate 81 /min BP Systolic Sitting 118 mmHg BP Diastolic Sitting 72 mmHg Respiratory Rate 18 /min Body Temperature 97.3 F Pain Level 8 BMI (Body Mass Index) 44.5 kg/m2 Results Description No Information Available Procedures Description No Information Available Medical Devices Description No Information Available Encounters Type Date Location Provider Dx Diagnosis Office Visit 03/16/2019 [facility] M51.36 Other intervertebral 1:30p [facility]ga Rowland MD disc degeneration, lumbar region Office Visit 12/17/2018 [facility] M51.36 Other intervertebral 11:30a [facility] Rowland MD disc degeneration, lumbar region Assessments Date Code Description Provider 03/16/2019 M51.36 Other intervertebral disc degeneration, Franco Rowland MD lumbar region 12/17/2018 M51.36 Other intervertebral disc degeneration, Franco Rowland MD lumbar region Plan of Treatment 03/16/2019 - Franco Rowland MDM51.36 Other intervertebral disc degeneration, lumbar regionNew Orders:EMG w/Nerve Conduct Study, Lower, Ordered : 03/16/19Referral:Janee Gaytan MD, NeurologyFollow up:Rv prn Functional Status Description No Information Available Mental Status Description No Information Available Referrals Refer to Reason for Referral Status Appt Date Janee Gaytan MD Created [address] [facility] [address] [place] [id number] [phone]
--- OUTSIDE RECORDS SUMMARY | 2019-04-21 10:18 | XMS REPORT | Continuity of Care Document ---
:1970 External Reference #:[id number] Author Name Marcela Silva O.D. Address [address] [place] [address] Care Team Providers Name Role Phone Monik Hutchison M.D. - Internal Medicine Care Team Information Production Support Consultant Maik Garland M.D. 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 Onset: 03/13/2019 Social History Type Date Description Comments Sex Unknown ETOH Use Rarely consumes alcohol Tobacco Use Start: Unknown Heavy tobacco smoker (more than 10 cigarettes/day) Recreational Drug Use Denies Drug Use Smoking Status Reviewed: 03/13/19 Heavy tobacco smoker (more than 10 cigarettes/day) Allergies, Adverse Reactions, Alerts Active Allergies Reaction Severity Comments Date Ultram 12/08/2018 Celebrex 12/08/2018 Inactive Allergies NKDA 12/08/2018 Medications Active Medications SIG Qnty Indications Ordering Provider Date Nucynta ER Unknown 50mg Tablets ER 12HR Tizanidine HCL Take One Capsule Unknown 4mg By Mouth AT Capsules Bedtime as Needed For Muscle Spasm Humira Pen Inject 40 MG Under Unknown 40mg/0.4ML The Skin Every PNKT Other Week Atorvastatin Calcium Take One Tablet By Unknown 10mg Mouth Daily Tablets Lisinopril Take One Tablet By Unknown 20mg Tablets Mouth Daily Meloxicam Take One Tablet By Unknown 15mg Tablets Mouth Every Day With Food as Needed For Pain Symbicort inhale 2 puffs by Unknown 160-4.5mcg/Act mouth twice a day Aerosol Ventolin HFA inhale 2 puffs by Unknown 108(90Base) mouth twice a day mcg/Act Aerosol if needed for cough or wheezing Metformin HCL Unknown 500mg Tablets Immunizations Description No Information Available Vital Signs Description No Information Available Results Description No Information Available Procedures Date Code Description Status 12/08/2018 81226 Scanning Computerized Ophthalmic Diagnostic Imag Posterior Completed Seg On 12/08/2018 14618 Visual Field Exam Extended Completed 12/08/2018 88645 New Patient Comprehensive Exam Completed 12/08/2018 23340 Pachymetry Completed Medical Devices Description No Information Available Encounters Description No Information Available Assessments Date Code Description Provider 03/13/2019 H40.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 03/13/2019 E11.9 Type 2 diabetes mellitus without Marcela Silva O.D. 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 at Donnie Ospina MD, 03/13/2019 - Marcela Silva O.D.H40.023 Open angle with borderline findings, high risk, bilateralFollow up:6 Month Follow Up IOP Check OCT ON You can expect to have your eyes dilated at your next visit. If Dr. Silva orders any additional testing, it may require extra time. We recommend that you bring sunglasses, as dilation drops often make you light sensitive until they wear off. We always recommend you bring someone to drive you home if you are uncomfortable driving with your eyes dilated. If you have any questions before your next visit, feel free to call our office at .D31.41 Benign neoplasm of right ciliary bodyE11.9 Type 2 diabetes mellitus without complications Functional Status Description No Information Available Mental Status Description No Information Available Referrals Description No Information Available
[2019-04-21 10:35] VITALS: BP 121/75
--- NOTE | 2019-04-21 11:35 | UC ---
Lower Extremity/Ankle HPI - HPI Summary HPI Summary: A COUPLE OF DAYS AGO PATIENT EXPERIENCED A SHARP PAIN IN HER LEFT POSTERIOR ANKLE WHILE WALKING. DENIES ANY INJURY OR TRAUMA. DID NOT TURN HER ANKLE. IS CONCERNED ABOUT A STRESS FRACTURE. - History of Current Complaint Chief Complaint: UCLowerExtremity Stated Complaint: L ANKLE PAIN Time Seen by Provider: 04/21/19 10:46 Hx Obtained From: Patient Onset/Duration: Sudden Onset, Lasting Days, Still Present Severity Initially: Moderate Severity Currently: Moderate Pain Intensity: 10 Pain Scale Used: 0-10 Numeric Aggravating Factor(s): Standing, Ambulation Alleviating Factor(s): Rest, Elevation Able to Bear Weight: Yes - Allergies/Home Medications Allergies/Adverse Reactions: Allergies Allergy/AdvReac Type Severity Reaction Status Date / Time tramadol Allergy Severe GI ISSUES Verified 04/21/19 10:35 celecoxib [From Celebrex] Allergy DIVERTICULI Verified 04/21/19 10:35 TIS PMH/Surg Hx/FS Hx/Imm Hx - Additional Past Medical History Additional PMH: PSORIATIC ARTHRITIS Endocrine History: Diabetes Cardiovascular History: Hypertension Other History Of: Negative For: Anticoagulant Therapy - Surgical History Surgical History: Yes Surgery Procedure, Year, and Place: tubal ligation, exploratory abd surgery, uterine ablasion, toe surgery X4 - Family History Known Family History: Positive: Diabetes, Blood Disorder - Clotting disorder, Other - Clotting disorder - Social History Alcohol Use: Rare Substance Use Type: None Smoking Status (MU): Current Every Day Smoker Amount Used/How Often: 1 ppd Household Exposure Type: Cigarettes - Immunization History Most Recent Tetanus Shot: >5 YEARS Review of Systems All Other Systems Reviewed And Are Negative: Yes Constitutional: Positive: Negative Skin: Positive: Negative Respiratory: Positive: Negative Cardiovascular: Positive: Negative Gastrointestinal: Positive: Negative Musculoskeletal: Positive: Arthralgia Physical Exam Triage Information Reviewed: Yes Appearance: Well-Appearing, No Pain Distress, Well-Nourished Vital Signs: Initial Vital Signs Temp 98.2 F 04/21/19 10:29 Pulse 85 04/21/19 10:29 Resp 18 04/21/19 10:29 BP 121/75 04/21/19 10:29 Pulse Ox 98 04/21/19 10:29 Vital Signs Reviewed: Yes Eyes: Positive: Conjunctiva Clear ENT: Positive: Hearing grossly normal Neck: Positive: Supple Respiratory: Positive: No respiratory distress, No accessory muscle use Cardiovascular: Positive: Pulses Normal Abdomen Description: Positive: Soft Musculoskeletal: Positive: ROM Intact, No Edema, Other: - NO TENDERNESS OVER SOFT TISSUES OR BONY PROMINENCES. Neurological: Positive: Alert Psychological: Positive: Age Appropriate Behavior Skin: Negative: Rashes Diagnostics - Radiology LEFT ANKLE PAIN Radiology Interpretation Completed By: Radiologist Summary of Radiographic Findings: 1. No stress reaction or fracture evident. 2. Small heel enthesophytes. Lower Extremity Course/Dx - Course Course Of Treatment: X-RAY TODAY NEGATIVE FOR FRACTURE OR DISLOCATION. PATIENT DOES HAVE SOME SMALL ENTHESOPHYTES AT ACHILLES TENDON INSERTION AND PLANTAR FASCIA ORIGIN HOWEVER THIS IS NOT IN THE AREA OF HER DISCOMFORT. PATIENT ALREADY FOLLOWS UP WITH A FOOT/ANKLE SPECIALIST. I HAVE ADVISED HER TO MAKE AN APPOINTMENT. SHE MAY BENEFIT FROM MORE ADVANCED IMAGING. CAN BOOT FOR DISCOMFORT AND TO HELP WITH MOBILITY. - Differential Dx/Diagnosis Provider Diagnosis: Left ankle pain Discharge ED - Sign-Out/Discharge Documenting (check all that apply): Patient Departure All imaging exams completed and their final reports reviewed: Yes - Discharge Plan Condition: Stable Disposition: HOME Patient Education Materials: Arthralgia (ED) Referrals: Monik Hutchison MD [Primary Care Provider] - If Needed Additional Instructions: X-RAY TODAY UNREMARKABLE FOR FRACTURE OR DISLOCATION. YOU HAVE SOME SMALL BONY PROJECTIONS WHERE YOUR ACHILLES TENDON INSERTS AND WHERE YOUR PLANTAR FASCIA STARTS HOWEVER THIS IS NOT IN THE AREA OF YOUR DISCOMFORT. FOLLOW-UP WITH YOUR FOOT/ANKLE SPECIALIST ARABELLA. WEAR THE CAM BOOT NEEDED FOR DISCOMFORT AND STABILITY. OTC MEDICATIONS NEEDED. REST, ELEVATE, COMPRESS. - Billing Disposition and Condition Condition: STABLE Disposition: Home
== END 2019-04-21 11:50 | disposition home or self-care (01) ==
LOC: UCEAST 10:09
DX: M25.572 Pain in left ankle and joints of left foot (principal); M25.772 Osteophyte, left ankle; I10 Essential (primary) hypertension; E11.9 Type 2 diabetes mellitus without complications; L40.50 Arthropathic psoriasis, unspecified; F17.210 Nicotine dependence, cigarettes, uncomplicated; Z88.5 Allergy status to narcotic agent; Z88.6 Allergy status to analgesic agent
CPT/HCPCS: 99212; G0463